=== PATIENT | female | born 1985 | race Caucasian/White ===

== ENCOUNTER 2019-08-26 06:30 | Inpatient (IN) | payer BC, OTHER, SELFPAY ==
[2019-08-26] VITALS (88 sets, daily range): BP systolic 82–142; BP diastolic 33–121; PULSE 57–198; RESP 12; TEMP 36.2–37.1; O2SAT 95–100; BMI 35.8
[2019-08-26] MEDS: LACTATED RINGERS 1,000 ML 125 ML IV CONT (07:14)
[2019-08-26] MEDS: FAMOTIDINE 20 MG/2 ML VIAL IV PUSH (07:16)
[2019-08-26] MEDS: OXYTOCIN 30 UNITS/NS 500 ML 30 UNITS/500 ML BAG IV CONT (07:16)
[2019-08-26 07:18] LABS: Basophils Percent Auto 0.2 % (0.2-1.2); Eosinophils Percent Auto 0.3 % (0-4.4); Hematocrit 39.2 % (37.0-47.0); Hemoglobin 13.3 g/dL (12.0-15.0); Immature Granulocyte Absolute 0.07 K/mm3 (0.00-0.031); Immature Granulocyte Percent A 0.6 % (0-0.5); Lymphocytes Absolute Auto 2.72 K/mm3 (0.9-3.2); Lymphocytes Percent Auto 22.3 % (18.3-44.2); Mean Corpuscular HGB Conc 33.9 g/dl (32-36); Mean Corpuscular Hemoglobin 30.8 pg (26-34); Mean Corpuscular Volume 90.7 fl (80-100); Mean Platelet Volume 12.2 fl (7.4-10.4); Monocytes Absolute Auto 0.7 K/mm3 (0.1-0.6); Neutrophils Absolute Auto 8.6 K/mm3 (1.3-6.7); Neutrophils Percent Auto 70.6 % (45.5-73.1); Platelet Count Result 157 k/mm3 (150-375); Red Blood Count 4.32 M/mm3 (4.2-5.4); Red Cell Distribution Width 14.3 % (11.5-14.5); White Blood Count 12.2 K/mm3 (4.5-10.0)
--- NOTE | 2019-08-26 07:29 | LDADM ---
This patient, Jennifer Palumbo, was admitted to Labor/Delivery/Recovery 108 on 08/26/19 at 06:30. Plans for labor, pain management and were discussed with patient. Patient/family oriented to hospital policies and general routines including ID bracelet, bed and alarms, visiting hours, pain management, procedures, bathroom and other care routines, personal items, smoking policy, room service/diet and guest tray routines, security routines, and visiting hours. Patient/Family are encouraged to report perceived risks to care and to ask questions if they do not understand what they are told or what they should do. See OBIX for further documentation.
--- NOTE | 2019-08-26 08:40 | WPDOBADMIT ---
Obstetrics - Admit Note Admission Note: record reviewed. Additions to the history and/or subsequent changes in the physical findings follow. 34 y/o at 39 5/7 weeks here desiring induction of labor. GBS neg. AVSS NST reactive TOCO: contractions irregularly ABD soft, nontender, gravid, vertex EXT nontender Cervix 4/50/-2. AROM with thinly meconium-stained fluid. A: IUP at term with favorable cervix. P: Oxytocin. Anticipate . Peds aware of meconium.
--- NOTE | 2019-08-26 09:57 | WPDANESEPPF ---
Anes - Initial Pre Proc Eval Date/Time: 08/26/19 09:57 Surgeon: Enrique Machuca MD Pre Op Diagnosis: IND Patient Data Age: 34 Gender: F Height: 1.65 m Weight: 97.72 kg Last Vital Signs Temp 36.3 C L 08/26/19 07:20 Pulse 62 08/26/19 09:45 BP 118/72 08/26/19 09:45 Allergies Allergy/AdvReac Type Severity Reaction Status Date / Time No Known Allergies Allergy Verified 08/06/19 14:16 Home Medications Medication Instructions Recorded Confirmed Type PNV cmb#95-ferrous fumarate-FA 1 tablet PO DAILY 08/06/19 08/06/19 History [] cetirizine [Zyrtec] 10 mg PO DAILY 08/06/19 08/06/19 History famotidine [Pepcid] 20 mg PO BID 08/06/19 08/06/19 History Laboratory Tests 08/26/19 08/26/19 08/26/19 06:44 06:44 06:44 WBC 12.2 K/mm3 H K/mm3 (4.5-10.0) RBC 4.32 M/mm3 M/mm3 (4.2-5.4) Hgb 13.3 g/dL g/dL (12.0-15.0) Hct 39.2 % % (37.0-47.0) MCV 90.7 fl fl (80-100) MCH 30.8 pg pg (26-34) MCHC 33.9 g/dl g/dl (32-36) RDW 14.3 % % (11.5-14.5) Plt Count 157 k/mm3 k/mm3 (150-375) MPV 12.2 fl H fl (7.4-10.4) Immature Gran % (Auto) 0.6 % H % (0-0.5) Neut % (Auto) 70.6 % % (45.5-73.1) Lymph % (Auto) 22.3 % % (18.3-44.2) [place] % (Auto) 6.0 % % (2.6-8.5) Eos % (Auto) 0.3 % % (0-4.4) Baso % (Auto) 0.2 % % (0.2-1.2) Lymph # (Auto) 2.72 K/mm3 K/mm3 (0.9-3.2) [place] # (Auto) 0.7 K/mm3 H K/mm3 (0.1-0.6) Eos # (Auto) 0.0 K/mm3 K/mm3 (0-0.3) Baso # (Auto) 0.0 K/mm3 K/mm3 (0.0-0.1) Abs Immat Gran (auto) 0.07 K/mm3 H K/mm3 (0.00-0.031) Absolute Neuts (auto) 8.6 K/mm3 H K/mm3 (1.3-6.7) Absolute Nucleated RBC 0.0 K/mm3 K/mm3 (0.0-0.012) Nucleated RBC % 0.0 % % (0.0-0.2) RPR Pending Blood Type O Positive Antibody Screen Negative Patient hx anesthesia problems: none Family hx anesthesia problems: none [facility] Family History Family History (Updated 08/06/19 @ 14:19 by Mala Davison RN) Sibling Deafness in right ear Mother Diabetes mellitus High cholesterol Hypertension Grandparent Breast cancer Social History Social History Smoking status: Never smoker Substance use: never Spiritual care concerns: No Anes - Eval Final PreProcedure Day of Procedure 08/26/19 09:57 Patient weight: overweight Heart: regular rate and rhythm Lungs: clear to auscultation and normal air movement Airway: Mallampati scale class II Neurological: alert and oriented Last oral intake: >/= 8 hours ASA classification: II Emergent: no Anesthetic plan: proceed Anesthesia type and monitoring: regional epidural Informed Consent: The patient's anesthetic plan and its attendant risks and benefits were discussed with the patient/family/POA. Questions were solicited and answers provided to the satisfaction of the patient/family/POA.
[2019-08-26 10:37] LABS: Rapid Plasma Reagin Non-Reactive (NonReactive)
--- NOTE | 2019-08-26 13:01 | PM.OBPNLAB ---
Pain Control Date/time seen: 08/26/19 13:01 Comments: Comfortable with epidural, but feeling more pressure. Pelvic Exam Dilation (cm): 9 Effacement (%): 100 station: 0 Contractions Contraction frequency: 3 Contraction pattern: Regular Status status: Category l Assessment and Plan Comments: Continue labor.
--- NOTE | 2019-08-26 13:48 | PM.OBPRVD ---
OB - Delivery Note Procedure Delivery date: 08/26/19 Procedure: Induction of labor with Induction method: AROM and per pitocin protocol Delivery monitor: external FHT and external uterine Route of delivery: Laceration description: Perineal - 1st Degree Delivery repair: vicryl (3-0) Specimen: Yes (cord blood) Estimated blood loss (mL): 120 Anesthesia type: Epidural Disposition: PACU Complications: None Narrative: 34 y/o at 39 5/7 weeks gestation who presented to the hospital for induction of labor. Oxytocin was administered intravenously. Amniotomy was performed with return of thinly meconium-stained fluid. She received an epidural for pain control. Her labor progressed and her cervix dilated completely. She pushed with good effort and delivered the infant's head to the perineum, followed by the body. The nose and mouth were bulb suctioned. After a delay, the cord was clamped and cut. The infant was handed off the field. Cord blood was collected. The placenta delivered spontaneously and was grossly normal in appearance. The usual 3 vessel cord was noted. A first degree midline perineal laceration was sustained. This was reapproximated using 3 0 Vicryl in interrupted fashion. Excellent hemostasis resulted as did excellent reapproximation of the normal anatomy. Needle and instrument counts were correct. The patient was taken to recovery room in stable condition. The infant went to the nursery in stable condition. I was present and scrubbed for the entire delivery. Baby Date of : 08/26/19 Time of : 13:33 Weeks of gestation at delivery: 39 Infant gender: Male Weight (pounds): 8 Weight (ounces): 7 presentation: vertex position: Right Occiput Anterior Placenta delivery description: Spontaneous and Normal Configuration cord vessel description: 3 Vessels score one minute: 9 score five minutes: 9
--- NOTE | 2019-08-26 13:50 | PM.OBDSVD ---
DS: Admitting Diagnosis Admitting Diagnosis Admitting Diagnosis: IUP at term with favorable cervix DS: Discharge Diagnosis Discharge Diagnosis (1) (normal spontaneous vaginal delivery): Code(s): O80 - Encounter for full-term uncomplicated delivery Status: Acute OB - DS: Summary OB Procedures : None OB Procedures Intrapartum: Spontaneous Vag Delivery OB Procedures: : None Time Spent with Patient Time attestation: Total time spent providing and/or coordinating discharge services: DS: Data Data Completed and Pending Labs on day of discharge: Labs from last 24 hours 08/26/19 08/26/19 08/26/19 06:44 06:44 06:44 WBC 12.2 H RBC 4.32 Hgb 13.3 Hct 39.2 MCV 90.7 MCH 30.8 MCHC 33.9 RDW 14.3 Plt Count 157 MPV 12.2 H Immature Gran % (Auto) 0.6 H Neut % (Auto) 70.6 Lymph % (Auto) 22.3 [place] % (Auto) 6.0 Eos % (Auto) 0.3 Baso % (Auto) 0.2 Lymph # (Auto) 2.72 [place] # (Auto) 0.7 H Eos # (Auto) 0.0 Baso # (Auto) 0.0 Abs Immat Gran (auto) 0.07 H Absolute Neuts (auto) 8.6 H Absolute Nucleated RBC 0.0 Nucleated RBC % 0.0 RPR Non-reactive Blood Type O Positive Antibody Screen Negative Discharge Plan Discharge Attending physician on discharge: Enrique Machuca Discharging Clinician: Enrique Machuca Patient Disposition: Home, Self-Care Activity: pelvic rest Diet: regular Discharge Instructions: Call or return if temperature above 100.4? F, increased abdominal pain, increased vaginal bleeding or any new problems. Stand Alone Forms: General Discharge Information Follow-up/Referrals: Enrique Machuca MD [Physician] - (6 weeks) Discharge Medications: New ibuprofen 600 mg tablet 600 mg PO Q6H PRN (Reason: cramps) Qty: 30 RF: 0 No Action cetirizine [Zyrtec] 10 mg Tablet 10 mg PO DAILY RF: 0 famotidine [Pepcid] 20 mg Tablet 20 mg PO BID RF: 0 PNV cmb#95-ferrous fumarate-FA [] 28 mg iron- 800 mcg Tablet 1 tablet PO DAILY RF: 0 Date of admission: 08/26/19 06:30 Primary Care Provider: Taj,Palua Admitting Provider: Enrique Machuca Attending physician on admission: Enrique Machuca
[2019-08-26] MEDS: OXYTOCIN 30 UNITS/NS 500 ML 30 UNITS/500 ML BAG 125 UNITS IV CONT (14:09)
[2019-08-26] MEDS: WITCH HAZEL 40 PADS 1 PAD TOPICAL (14:09)
[2019-08-26] MEDS: BENZOCAINE 20% AER SPR (*SP) 56 GM CAN 1 SPRAY TOPICAL (14:09)
--- NOTE | 2019-08-26 17:58 | OBPPTRN ---
Patient transferred to post room #290 via W/C @ [id number]. Support person present. Oriented to unit, room, information board, rooming in, admission packet and security measures. Patient verbalizes understanding.
[2019-08-26] MEDS: IBUPROFEN 600 MG TABLET PO (18:50)
[2019-08-27] MEDS: SIMETHICONE 80 MG TAB.CHEW PO (04:50)
[2019-08-27] MEDS: IBUPROFEN 600 MG TABLET PO (04:50)
[2019-08-27 05:37] LABS: Hematocrit 34.9 % (37.0-47.0); Hemoglobin 11.6 g/dL (12.0-15.0)
--- NOTE | 2019-08-27 08:20 | PM.OBPNVD ---
OB - PN: Subj Subjective Date/time seen: 08/27/19 08:20 Narrative: Pain OK. Desires circumcision for son. Also would like to go home. OB - PN: Obj Data Labs CBC & Chem 7: 08/27/19 04:54 Labs: Laboratory Results - last 24 hr 08/26/19 08/26/19 08/27/19 06:44 06:44 04:54 Hgb 11.6 L Hct 34.9 L RPR Non-reactive Blood Type O Positive Antibody Screen Negative OB - PN A/P Plan Comments: A: PPD#1, doing well. P: Routine care. Reviewed circ. Home to f/u 6 weeks. Exam Psych: Other: AVSS ABD soft, nontender, fundus firm EXT nontender
[2019-08-27] MEDS: ACETAMINOPHEN 325 MG TABLET 650 MG PO (09:11)
[2019-08-27] MEDS: MULTIVIT/MIN/PREN/FOL AC/IRON TABLET 1 TAB PO (09:11)
[2019-08-27] MEDS: DOCUSATE SODIUM 100 MG CAPSULE PO (09:11)
[2019-08-27] MEDS: BENZOCAINE 20% AER SPR (*SP) 56 GM CAN 1 SPRAY TOPICAL (09:12)
[2019-08-27] MEDS: WITCH HAZEL 40 PADS 1 PAD TOPICAL (09:12)
[2019-08-27 10:17] VITALS: BP 118/64; PULSE 72; RESP 14; TEMP 36.6; O2SAT 100
[2019-08-28 09:18] VITALS: BP 112/67; PULSE 73; RESP 20
== END 2019-08-27 16:10 | disposition home or self-care (01) | DRG 807 ==
LOC: ANHLDR 13:51 → ANHOB2 16:52
PROVIDERS: Admitting Provider Obstetrics & Gynecology; PCP Physician Assistant; Visit Provider Obstetrics & Gynecology
DX: O77.0 Labor and delivery complicated by meconium in amniotic fluid (principal); Z37.0 Single live birth; Z3A.39 39 weeks gestation of pregnancy; O70.0 First degree perineal laceration during delivery; O99.344 Other mental disorders complicating childbirth; F90.9 Attention-deficit hyperactivity disorder, unspecified type
CPT/HCPCS: 36415; 85014; 85018; 85025; 86592; 86850; 86900; 86901; A9270; J2590; J2795; J7120

== ENCOUNTER 2020-04-30 08:03 | Outpatient (CLI) | payer BC, OTHER, SELFPAY ==
--- NOTE | ~2020-04-30 | XR_ITS ---
XR UGIAC wo kub DATE: 04/30/2020 08:49 INDICATION: Gastroesophageal reflux TECHNIQUE: Air-contrast upper gastrointestinal series DAP: 45.075 2.8 minutes fluoroscopy time 109 image count COMPARISON: None FINDINGS: . There is normal deglutition and esophageal peristalsis. No stricture, mucosal fold thicke nitish, erosion, ulceration or intraluminal mass lesion of the esophagus, stomach or duodenum is detect ed. The proximal small bowel mucosal pattern is normal. No hiatal hernia. No gastroesophageal reflux was observed during the procedure. IMPRESSION: Normal examination Reviewed, dictated and finalized at [facility]. Reviewed, dictated and finalized at location A. 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
== END 2020-04-30 08:04 | disposition home or self-care (01) ==
LOC: ANHIMG 08:07
PROVIDERS: PCP Physician Assistant; Visit Provider Physician Assistant
DX: K21.9 Gastro-esophageal reflux disease without esophagitis (principal)
CPT/HCPCS: 74246

== ENCOUNTER → 2020-06-29 04:14 | Outpatient (CLI) | payer BC, OTHER, SELFPAY ==
[2020-06-29 19:04] LABS: SARS-CoV-2 RNA PCR Negative
== END ==
PROVIDERS: PCP Physician Assistant; Visit Provider Internal Medicine Gastroenterology
DX: Z01.812 Encounter for preprocedural laboratory examination (principal); Z20.822 Contact with and (suspected) exposure to COVID-19
CPT/HCPCS: C9803; U0003; U0005

== ENCOUNTER 2020-07-02 01:17 | Day surgery (SDC) | payer BC, OTHER, SELFPAY ==
[2020-06-17 11:53] VITALS: BMI 31.1
[2020-07-02 09:58] VITALS: BP 106/50; PULSE 76; RESP 18; TEMP 35.9; O2SAT 100
[2020-07-02] MEDS: LACTATED RINGERS 1,000 ML 150 ML IV CONT (10:08)
--- NOTE | 2020-07-02 10:08 | WPDANESEPPF ---
Anes - Initial Pre Proc Eval Procedure: Operation Date: 07/02/20 11:15 Proposed Procedures p Esophagogastroduodenoscopy - Mac Guillory MD Date/Time: 07/02/20 10:08 Surgeon: Mac Guillory MD Pre Op Diagnosis: GERD Patient Data Age: 34 Gender: F Height: 5 ft 5 in Weight: 84.4 kg Last Vital Signs Temp 35.9 C L 07/02/20 09:58 Pulse 76 07/02/20 09:58 Resp 18 07/02/20 09:58 BP 106/50 L 07/02/20 09:58 Pulse Ox 100 07/02/20 09:58 Allergies Allergy/AdvReac Type Severity Reaction Status Date / Time No Known Allergies Allergy Verified 07/02/20 09:56 Home Medications Medication Instructions Recorded Confirmed Type cetirizine [Zyrtec] 10 mg PO DAILY 08/06/19 06/17/20 History dextroamphetamine-amphetamine 10 10 mg PO BID 05/27/20 06/17/20 History mg tablet docusate calcium 50 mg capsule 50 mg PO DAILY 05/27/20 06/17/20 History escitalopram oxalate 10 mg tablet 10 mg PO DAILY 05/27/20 06/17/20 History pantoprazole 40 mg granules 40 mg PO DAILY 05/27/20 06/17/20 History delayed-release for susp in packet famotidine 20 mg PO HS 06/17/20 06/17/20 History Patient hx anesthesia problems: none Family hx anesthesia problems: none PMFSH Past Medical History Medical History ADHD Anxiety GERD (gastroesophageal reflux disease) Overweight Family History Family History Sibling Deafness in right ear Mother Diabetes mellitus High cholesterol Hypertension Grandparent Breast cancer Social History Social History Smoking status: Never smoker Alcohol intake: current Drinks per week: 2 Substance use: never Substance use type: does not use Living arrangements: with family Spiritual care concerns: No Anes - Eval Final PreProcedure Day of Procedure 07/02/20 10:08 Patient weight: obese Heart: regular rate and rhythm Lungs: clear to auscultation Airway: Mallampati scale class II Neurological: alert and oriented Last oral intake: >/= 8 hours ASA classification: III Emergent: no Anesthetic plan: proceed Anesthesia type and monitoring: general GIVS and standard monitoring Informed Consent: The patient's anesthetic plan and its attendant risks and benefits were discussed with the patient/family/POA. Questions were solicited and answers provided to the satisfaction of the patient/family/POA.
--- NOTE | 2020-07-02 10:45 | PM.HPGS ---
History of Present Illness History of Present Illness Consent: Risks, benefits, and alternatives have been discussed and questions answered. Patient agrees to proceed with procedure. Chief complaint: GERD Narrative: Jennifer Palumbo is a 34 year old female with gerd, better with protonix, pepcid and after discontinued to drink coffee Review of Systems Constitutional: Constitutional: Denies headache(s) and Denies weakness Eyes: Eyes: Denies blurry vision ENT: Reports Normal hearing present, Denies headache(s) and Denies neck pain Cardiovascular: Cardiovascular: Denies chest pain and Denies dyspnea Respiratory: Respiratory: Denies dyspnea Gastrointestinal: Gastrointestinal: Reports no additional gastrointestinal complaints Genitourinary: Genitourinary: Denies dysuria Musculoskeletal: Musculoskeletal: Denies neck pain Integumentary/Breasts: Skin/Breast: Denies dry skin Neurologic: Reports Normal hearing present, Denies headache(s) and Denies weakness Psychiatric: Psychiatric: Denies anxiety Endocrine: Endocrine: Denies change in body appearance Hematologic/Lymphatic: Hematologic/Lymphatic: Denies easy bleeding Allergic/Immunologic: Allergic/Immunologic: Denies urticaria PMFSH Past Medical History Medical History ADHD Anxiety GERD (gastroesophageal reflux disease) Overweight Family History Family History Sibling Deafness in right ear Mother Diabetes mellitus High cholesterol Hypertension Grandparent Breast cancer Social History Social History Smoking status: Never smoker Alcohol intake: current Drinks per week: 2 Substance use: never Substance use type: does not use Living arrangements: with family Spiritual care concerns: No Meds Home Medications and Allergies Home Medications Medication Instructions Recorded Confirmed Type cetirizine [Zyrtec] 10 mg PO DAILY 08/06/19 06/17/20 History dextroamphetamine-amphetamine 10 10 mg PO BID 05/27/20 06/17/20 History mg tablet docusate calcium 50 mg capsule 50 mg PO DAILY 05/27/20 06/17/20 History escitalopram oxalate 10 mg tablet 10 mg PO DAILY 05/27/20 06/17/20 History pantoprazole 40 mg granules 40 mg PO DAILY 05/27/20 06/17/20 History delayed-release for susp in packet famotidine 20 mg PO HS 06/17/20 06/17/20 History Allergies Allergy/AdvReac Type Severity Reaction Status Date / Time No Known Allergies Allergy Verified 07/02/20 09:56 Vital Signs Vital Signs - 24 hr 07/02/20 09:58 Temperature 96.7 F L Pulse Rate 76 Respiratory Rate 18 Blood Pressure 106/50 L Pulse Oximetry 100 Exam Const: General: comfortable and no acute distress HENMT: General nose exam: Normal nares present Eyes: General: appearance normal, both eyes and all related structures Neck: Neck: no JVD Resp: Auscultation: clear to auscultation bilaterally Cardio: Rate: regular rate Rhythm: regular rhythm GI: Inspection: non-distended GI Palp: Yes Soft to palpation Skin: General skin exam: normal color Neuro: General: gait normal Speech: normal speech Extrem: General: normal to inspection Psych: Mental Status: mental status grossly normal Assessment and Plan Assessment and plan (1) GERD (gastroesophageal reflux disease): Code(s): K21.9 - Gastro-esophageal reflux disease without esophagitis Status: Inactive Assessment and Plan: egd
[2020-07-02] MEDS: BENZOCAINE (*SP) 60 ML SPRAY CAN (HURRICAINE) 1 SPRAY MUCOUS MEM (10:46)
[2020-07-02 10:55] VITALS: BP 103/62; PULSE 61; RESP 18; O2SAT 98
[2020-07-02 11:05] VITALS: BP 118/74; PULSE 73; RESP 20; O2SAT 100
[2020-07-02 11:15] VITALS: BP 120/79; PULSE 68; RESP 24; O2SAT 100
== END 2020-07-02 11:39 | disposition home or self-care (01) ==
PROVIDERS: PCP Physician Assistant; Visit Provider Internal Medicine Gastroenterology
PROC: 0DJ08ZZ Inspection of Upper Intestinal Tract, Via Natural or Artificial Opening Endoscopic (ICD-10-PCS; CPT 43235; principal; 2020-07-02 11:15)
DX: K21.9 Gastro-esophageal reflux disease without esophagitis (principal); K29.50 Unspecified chronic gastritis without bleeding; F90.9 Attention-deficit hyperactivity disorder, unspecified type; E66.9 Obesity, unspecified; Z68.31 Body mass index [BMI] 31.0-31.9, adult
CPT/HCPCS: 43239; 88305; J2704; J7120

== ENCOUNTER → 2021-01-14 13:58 | Outpatient (CLI) | payer BC, OTHER, SELFPAY ==
--- NOTE | ~2021-01-14 | XR_ITS ---
EXAMINATION: XR sacrum coccyx min 2V INDICATION: Sacrococcygeal pain TECHNIQUE: Three views of the sacrum and coccyx are obtained. COMPARISON: CT, 01/27/2007 FINDINGS: No fracture is identified. There is grossly no change since the 2006 comparison. The soft t issues are unremarkable. IMPRESSION: 1. No acute osseous abnormality. Reviewed, dictated and finalized at location A.
== END ==
PROVIDERS: PCP Physician Assistant; Visit Provider Chiropractor
DX: S32.2XXA Fracture of coccyx, initial encounter for closed fracture (principal)
CPT/HCPCS: 72220

== ENCOUNTER → 2021-03-17 08:26 | Outpatient (CLI) | payer BC, OTHER, SELFPAY ==
--- NOTE | ~2021-03-17 | MMUS_ITS ---
EXAMINATION: MM diag nik implant BI w payton, US breast LT limited HISTORY: Sensation of abnormal rotation of the left breast implant as well as abnormal sensation in t he upper outer quadrant of the left breast and near the nipple TECHNIQUE: Craniocaudal, mediolateral, and mediolateral oblique 3-D tomosynthesis images with implant displacement of the breasts were performed and synthetic 2-D images were generated. Craniocaudal, m ediolateral oblique, and mediolateral views of the breasts without implant displacement were obtained using full field digital mammography. CAD analysis was submitted and interpreted. High resolution [facility] left breast ultrasound was performed. COMPARISON: None, baseline BREAST PARENCHYMAL COMPOSITION: The breasts are heterogeneously dense, which may obscure small masses . FINDINGS: MAMMOGRAPHIC FINDINGS: There is no evidence of suspicious mass, calcification, or architectural distortion in either breast to suggest malignancy. No mammographic correlate is identified for the reported abnormal sensation o f the left breast. ULTRASOUND: There is no evidence of focal abnormal solid or cystic lesion in the vicinity of the reported abnorma l sensation of the left breast. There is fluid surrounding the left breast implant of unclear etiolog y. IMPRESSION: 1. No specific mammographic or sonographic correlate is identified for the reported abnormal sensatio n of the left breast. Further evaluation at this time should be based on clinical assessment. Continu ed follow-up physical examination is recommended. 2. Fluid surrounding the left breast implant of unclear etiology. BI-RADS Category 1: Negative Reviewed, dictated and finalized at location A. DEVELOPER IMPRESSION: 1. No specific mammographic or sonographic correlate is identified for the repo rted abnormal sensation of the left breast. Further evaluation at this time krystal uld be based on clinical assessment. Continued follow-up physical examination i s recommended. 2. Fluid surrounding the left breast implant of unclear etiology. BI-RADS Category 1: Negative
== END ==
PROVIDERS: PCP Physician Assistant; Visit Provider Physician Assistant
DX: T85.49XA Other mechanical complication of breast prosthesis and implant, initial encounter (principal)
CPT/HCPCS: 76642; 77062; 77066; G0279

== ENCOUNTER 2021-06-10 06:03 | Day surgery (SDC) | payer OTHER, SELFPAY ==
[2021-05-27 10:58] VITALS: BMI 29.0
--- NOTE | 2021-05-27 11:56 | SUR.PREOP ---
PRE-OPERATIVE INSTRUCTIONS [address] [address] 1. Report to the Surgery Center Waiting Room, the entrance is the first door on the right after passing through the automatic sliding doors, at time __0600____on date__06/10/2021__. OR Time:__07:30___ . When you arrive, you and your visitor will be screened for Covid prior to entry. A mask is required within the surgery center. 2. Preoperative Covid Testing Requirements: No Covid Test Needed if: (proof is required) ? Patient has received Covid Vaccine at least 14 days prior to procedure date or ? Patient has positive Covid test result within last 90 days of surgery date. Covid Test needed if above criteria is not met: Covid testing must be conducted within 72 hours of surgery and patient is asked to isolate self from time of testing until procedure. You will be scheduled for your Preoperative testing. Your time for testing is on (date) at time . You will go to the (Testing Site) for your preoperative testing. The Testing Site is located at [address] [place] [address]. The [facility] on Corner [address] You will only be called if test is a positive result. 3. Patients may have clear liquids (water, carbonated beverages, clear teas, apple juice) until 3 hours prior to surgery with a maximum of 20 ounces. ? No food from midnight until time of surgery. ? Infants may have breast milk until 4 hours before surgery, formula 6 hours prior to surgery. ? Children will be allowed to drink immediately following surgery. If applicable, please bring a bottle or sippy cup to assist with drinking. Juice, water, soda, and popsicles are readily available. For infants on formula, please bring formula the day of surgery. Pacifiers are allowed. 4. Take the following medications with a SIP of water the morning of surgery: 1. n/a 2. 3. Medications to discontinue per physician order: 1. n/a date to discontinue: 5. No make-up, nail chinese, hairspray, perfume, deodorant, or body powder the day of surgery. No jewelry (including any body piercings) or valuables the day of surgery. Please take a shower or bath the night before, or the morning of, surgery with an antibacterial soap. Wear comfortable, loose fitting clothing. Children are encouraged to wear pajamas. ? Jewelry must be removed prior to entering the operating room. Rings and piercings that are not removed will be cut off. The center will not accept responsibility for valuables. Please leave all valuables, including medications, at home the day of surgery. 6. When going home after surgery, a licensed local company truck driver must drive you home. NO public transportation without another adult. We recommend someone to stay with you, no alcoholic beverages, driving or important decision making for 24 hours after surgery. For pediatric surgeries, we recommend two adults to accompany a child home. (Only one will be allowed into the building with the patient) 7. 1 visitor (over age of 18) will be allowed. The visitor will drop patient off and remain in car until patient is prepared for surgery. Visitor will be called to join patient. Exceptions: Adult of a pediatric patient, patients with intellectual and/or developmental disability or cognitive impairments can accompany patient through-out visit. Visitors will need to be screened prior to coming into the center. Screening will include Covid symptom question checking. Visitor must wear a mask. Visitor will remain in patient?s room for duration of stay. 8. Follow any additional instructions given by your physician. Telephone instruction given to:_patientMo Rodriguez
--- NOTE | 2021-06-09 11:15 | WPDANESEPPF ---
Anes - Initial Pre Proc Eval Procedure: Operation Date: 06/10/21 07:30 Proposed Procedures p Bilateral Breast Implant Exchange - Amadeo Perez MD s Bilateral Breast Mastopexy - Amadeo Perez MD Date/Time: 06/09/21 11:15 Surgeon: Amadeo Perez MD Pre Op Diagnosis: History of Breast Augmentation, Breast Ptosis Patient Data Age: 35 Gender: F Height: 1.65 m Weight: 79 kg Allergies Allergy/AdvReac Type Severity Reaction Status Date / Time No Known Allergies Allergy Verified 06/10/21 06:49 Home Medications Medication Instructions Recorded Confirmed Type cetirizine [Zyrtec] 10 mg PO DAILY 08/06/19 05/27/21 History dextroamphetamine-amphetamine 10 10 mg PO BID 05/27/20 05/27/21 History mg tablet docusate calcium 50 mg capsule 50 mg PO DAILY 05/27/20 05/27/21 History famotidine 20 mg PO HS 06/17/20 05/27/21 History carisoprodol 350 mg tablet 350 mg PO TID PRN #21 tablet 05/27/21 05/27/21 Rx cholecalciferol (vitamin D3) 10 mcg PO DAILY 05/27/21 05/27/21 History fluoxetine [Prozac] 10 mg PO DAILY 05/27/21 05/27/21 History magnesium 30 mg PO DAILY 05/27/21 05/27/21 History oxycodone-acetaminophen 5 mg-325 1 tablet PO Q6H PRN #30 tablet 05/27/21 05/27/21 Rx mg tablet pantoprazole [Protonix] 40 mg PO BID 05/27/21 05/27/21 History Patient hx anesthesia problems: none Family hx anesthesia problems: none Results Review: All pre-operative results and documents have been reviewed as part of the pre-operative evaluation. [facility] Past Medical History Medical History ADHD Anxiety GERD (gastroesophageal reflux disease) Overweight Surgical History Surgical History Hx of breast augmentation Family History Family History Sibling Deafness in right ear Mother Diabetes mellitus High cholesterol Hypertension Grandparent Breast cancer Social History Social History Smoking status: Never smoker Alcohol intake: current Drinks per week: 2 Substance use: never Substance use type: does not use Living arrangements: with family Spiritual care concerns: No Anes - Eval Final PreProcedure Day of Procedure 06/09/21 11:15 Patient weight: overweight Heart: regular rate and rhythm Lungs: clear to auscultation and normal air movement Airway: Mallampati scale class II Neurological: alert and oriented Last oral intake: >/= 8 hours ASA classification: II Emergent: no Anesthetic plan: proceed Anesthesia type and monitoring: general LMA and standard monitoring Results Review: All pre-operative results and documents have been reviewed as part of the pre-operative evaluation. Informed Consent: The patient's anesthetic plan and its attendant risks and benefits were discussed with the patient/family/POA. Questions were solicited and answers provided to the satisfaction of the patient/family/POA.
[2021-06-10] VITALS (7 sets, daily range): BP systolic 104–117; BP diastolic 49–70; PULSE 61–74; RESP 14–17; TEMP 36.5–36.6; O2SAT 97–100; BMI 29.2
[2021-06-10] MEDS: SCOPOLAMINE 1.5 MG PATCH TRANSDERM (07:16)
[2021-06-10] MEDS: LACTATED RINGERS 1,000 ML 30 ML IV CONT ×2 (07:18→10:17)
--- NOTE | 2021-06-10 07:18 | WPDHPUPDATE1 ---
History and Physical Update Update Date/Time: 06/10/21 07:18 History and Physical has been reviewed, including an updated exam of the patient. There are NO changes in the patient's condition. Risks, benefits, and alternatives have been discussed and questions answered. Patient agrees to proceed with procedure.
--- NOTE | 2021-06-10 07:26 | W.PM.PROC2 ---
Procedure Note - Detailed Date of Procedure 06/10/21 Pre-op Diagnosis History of Breast Augmentation, Breast Ptosis Post-op Diagnosis Same Procedure Performed 1. Bilateral implant exchange (change to submuscular /dual plane) 2. Bilateral mastopexy 3. Bilateral capsulectomy Surgeon Amadeo Perez MD Anesthesia General Findings Implants removed - textured, no worrisome intraoperative findings. Bilateral Inverted T, Superior pedicle mastopexy Bilateral Natrelle Inspira SoftTouch 400cc smooth silicone implants. Right - REF# [id number] SN [id number] Left - REF# [id number] SN [id number] Description of Procedure She is here today for bilateral breast implant exchange mastopexy. Previously and again today the risks, benefits, alternatives were discussed in extensive detail. I wanted her to be very realistic about the risks involved as well as expectations. We discussed aftercare and what to monitor for. Made sure answered all of her questions to her satisfaction today and consent was obtained. Marked in the preoperative holding area with their verification. The patient was taken to the operating room placed supine on the operating table. Anesthesia was provided by anesthesiology. A surgical time-out was taken. We cleansed the skin and 1% lidocaine and 0.25% Marcaine with epinephrine was used anesthetize as a field block. She was prepped and draped in a standard sterile fashion. Tegaderm nipple Eduardo were placed. A 15 blade used to make an incision at the previous incision site. Dissection was continued down until the capsule was identified and removed the majority of the capsule. Capsule and implant removed. I saw no worrisome features. Bilateral implants were textured appear to be intact. She has elected to proceed with changing plane to submuscular in a dual plane fashion. I incised the pectoralis major along its inferior border and completely released the inferior border leaving the medial border intact. I created a subpectoral pocket in the appropriate dimensions based on our preoperative planning for the implant. I irrigated with 3 L of saline solution total on TUR tubing. I reapproximated the breast to the pectoralis using 2-0 Vicryl to prevent migration of the implant into the prepectoral position. I then copiously irrigated with saline solution and verified a strict hemostasis. Next the use a triple antibiotic and Betadine containing solution to irrigate the pocket. I washed my gloves with the triple antibiotic and Betadine solution. We washed the implant immediately upon opening it with this solution and only opened it when we needed it. I used implant funnel and no-touch technique. The implant was introduced into the pocket using the funnel. Having verified positioning of the implant this was closed using 2-0 Vicryl. I tailor tacked the breast into position. Placed her in a sitting position. Verified the nipple-areolar location based on preoperative planning as well as intraoperative observations and measurements in full agreement. She was placed supine. I de-epithelialized the pedicle. I then removed the inferior central portion of the breast need making sure the implant was well protected. I elevated medial and lateral tissue flaps as well for planned closure. I closed along the IMF with 2-0 Stratafix. Along the vertical with 2-0 PDS. I closed around the Nicholas with 3-0 strata fix. 3-0 Monocryl along the vertical. 3-0 Stratafix along the IMF. I finally closed everything with running subcuticular 4-0 Monocryl and tissue glue. Fluffs and surgical bra were placed. Estimated Blood Loss 50 Drains No Packing No Pathology Yes (Bilateral breast implant capsules.) Complications No immediate complications Condition Stable Disposition PACU
[2021-06-10] MEDS: ceFAZolin SODIUM 2 GM/20 ML SW SYRINGE IV PUSH (07:27)
[2021-06-10] MEDS: LIDO 1%/EPINEPHRINE 1:100,000 20 ML VIAL 40 ML INFILTRATE (07:57)
[2021-06-10] MEDS: fentaNYL CITRATE INJ (*CRX) 100 MCG/2 ML VIAL 25 MCG IV PUSH ×3 (10:22→10:41)
[2021-06-10] MEDS: oxyCODONE HCL (*CRX) 5 MG TAB IR PO (11:15)
--- NOTE | 2021-06-10 11:48 | WPDANESPN ---
Anes - Prog Note Post-Op Date/Time: 06/10/21 11:48 Cardiovascular status: normal Respiratory status: normal Airway patency: baseline Mental status: baseline Post-Op hydration status: normal Vital Signs: Last Vital Signs Temp 36.5 C 06/10/21 10:09 Pulse 66 06/10/21 11:35 Resp 15 06/10/21 11:35 BP 104/70 06/10/21 11:35 Pulse Ox 97 06/10/21 11:35 Pain Score (VAS): 3 I/O: Intake & Output 06/09/21 06/10/21 06/10/21 23:59 07:59 15:59 Intake Total 1000 Balance 1000 Post-procedural complaints: none Patient Feedback: Patient satisfied with anesthetic care. Other Findings: Patient vital signs back to baseline. Patient denies nausea and vomiting. Patient's pain under control. Patient OK for discharge.
== END 2021-06-10 11:45 | disposition home or self-care (01) ==
PROVIDERS: PCP Physician Assistant; Visit Provider Surgery Plastic and Reconstructive Surgery
PROC: (CPT 19342; principal; 2021-06-10 07:30)
PROC: (CPT 19316; 2021-06-10 07:30)
DX: Z98.82 Breast implant status (principal)
CPT/HCPCS: 19342; 19316

== ENCOUNTER 2021-06-10 09:48 | Outpatient (NON) | payer BC, OTHER, SELFPAY | END 2021-06-13 09:14 | disposition home or self-care (01) | PROVIDERS: PCP Physician Assistant; Visit Provider Surgery Plastic and Reconstructive Surgery | DX: Z98.82 Breast implant status (principal) | CPT/HCPCS: 88304 ==

== ENCOUNTER 2022-02-15 00:34 | Day surgery (SDC) | payer BC, OTHER, SELFPAY ==
[2022-02-06 15:37] VITALS: BMI 27.1
--- NOTE | 2022-02-06 15:41 | PC.NURSE ---
Report to the Outpatient Waiting Room, entrance under the green pavilion located off [facility], at time 1000 on date 02/15/22. Planned Procedure Time: 1200. Time changes happen often and if your time is changed the preop area will call you the afternoon before. - You and your visitor will be asked to self-screen and do not enter if you have any COVID symptoms. - We encourage only one visitor and NO visitors under age 16 are allowed at this time. Your visitor will receive communication by the phone number that is given day of service. - The patient visitor is requested to social distance or may leave the building when not with patient due to restrictions. - A mask is OPTIONAL within the hospital. Patients may have clear liquids (water, carbonated beverages, clear teas, apple juice) until 3 hours prior to surgery with a maximum of 20 ounces. - No food from midnight until time of surgery Take the following medications with a SIP of water the morning of surgery: FLUOXETINE Medications to discontinue per physician: VITAMINS/SUPPLEMENTS Date to take last dose: 02/11/22 Please no make-up, nail mohawk, hairspray, perfume, deodorant, or body powder the day of surgery. No jewelry (including any body piercings) or valuables the day of surgery, leave them at home. Please take a shower or bath the night before, or the morning of, surgery with an antibacterial soap. Wear comfortable, loose fitting clothing. - Jewelry must be removed prior to entering the operating room. Rings and piercings that are not removed may be cut off. - The hospital will not accept responsibility for valuables. - Please leave all valuables, including medications, at home the day of surgery. If you are going home after surgery, a licensed marine engine driver must drive you home. - NO public transportation without another adult. - We recommend that an adult stay with you for 24 hours following discharge. - We also recommend that you do not drive, make important decision, drink alcoholic beverages, or take any drugs that were not prescribed by your health care provider for at least 24 hours after your discharge time. Follow any additional instructions given to you from your surgeon. If you or anyone in your household have experienced Covid symptoms in the past week, please notify your surgeon or the nurse liaison at the phone number below for possible testing. Telephone instructions given to PT - EDGARDO RANGEL and asked if any additional questions and then verbalized understanding. Patient advised to call surgeon office or pre surgery nurse liaison [phone] if any additional questions.
--- NOTE | 2022-02-14 14:41 | WPDANESEPPF ---
Anes - Initial Pre Proc Eval Procedure: Operation Date: 02/15/22 07:30 Proposed Procedures p Hysteroscopy Dilation and Curettage with Veronica Endometrial Ablation - Enrique Machuca MD Date/Time: 02/14/22 14:41 Surgeon: Enrique Machuca MD Pre Op Diagnosis: irregular bleeding Patient Data Age: 36 Gender: F Height: 1.65 m Weight: 73.95 kg Allergies Allergy/AdvReac Type Severity Reaction Status Date / Time No Known Allergies Allergy Verified 02/15/22 06:16 Home Medications Medication Instructions Recorded Confirmed Type famotidine 20 mg tablet 20 mg PO HS 06/17/20 02/15/22 History cholecalciferol (vitamin D3) 10 10 mcg PO DAILY 05/27/21 02/15/22 History mcg (400 unit) tablet fluoxetine 10 mg capsule (Prozac) 10 mg PO DAILY 05/27/21 02/15/22 History docusate sodium 100 mg tablet 100 mg PO DAILY 02/06/22 02/15/22 History lisdexamfetamine 60 mg capsule 60 mg PO DAILY 02/06/22 02/15/22 History (Vyvanse) loratadine 10 mg tablet 10 mg PO DAILY 02/06/22 02/15/22 History magnesium 250 mg tablet 250 mg PO DAILY 02/06/22 02/15/22 History omega 5-rae-ehl-fish oil 1,000 mg 1 cap PO DAILY 02/06/22 02/15/22 History (120 mg-180 mg) capsule (Fish Oil) tirzepatide 5 mg/0.5 mL 5 mg subcut WEEKLY WEIGHT LOSS 02/06/22 02/15/22 History subcutaneous pen injector (Mounjaro) Patient hx anesthesia problems: none Family hx anesthesia problems: none Results Review: All pre-operative results and documents have been reviewed as part of the pre-operative evaluation. [facility] Past Medical History Medical History ADHD Anxiety GERD (gastroesophageal reflux disease) Overweight Surgical History Surgical History Hx of breast augmentation Family History Family History Sibling Deafness in right ear Mother Diabetes mellitus High cholesterol Hypertension Grandparent Breast cancer Social History Social History Smoking status: Never smoker Alcohol intake: current Drinks per week: 2 Substance use: never Substance use type: does not use Living arrangements: with family Spiritual care concerns: No Anes - Eval Final PreProcedure Day of Procedure 02/14/22 14:41 Patient weight: overweight Heart: regular rate and rhythm Lungs: clear to auscultation and normal air movement Airway: Mallampati scale class II Neurological: alert and oriented Last oral intake: >/= 8 hours ASA classification: II Emergent: no Anesthetic plan: proceed Anesthesia type and monitoring: general GIVS and LMA and standard monitoring Results Review: All pre-operative results and documents have been reviewed as part of the pre-operative evaluation. Informed Consent: The patient's anesthetic plan and its attendant risks and benefits were discussed with the patient/family/POA. Questions were solicited and answers provided to the satisfaction of the patient/family/POA.
--- NOTE | 2022-02-15 01:16 | PM.IMHP ---
H&P: HPI History of Present Illness Date/Time: 02/15/22 01:16 Chief Complaint: Heavy periods. Narrative: 36 y/o who has heavy menses lasting 4 days each on a combined contraceptive. But her has had a vasectomy and she plans to stop taking her pill. She desires surgical management of her problem. Review of Systems Review of Systems: All systems reviewed & are unremarkable except as noted in HPI and below PMFSH Past Medical History Medical History ADHD Anxiety GERD (gastroesophageal reflux disease) Overweight Surgical History Surgical History Hx of breast augmentation Family History Family History Sibling Deafness in right ear Mother Diabetes mellitus High cholesterol Hypertension Grandparent Breast cancer Social History Social History Smoking status: Never smoker Alcohol intake: current Drinks per week: 2 Substance use: never Substance use type: does not use Living arrangements: with family Spiritual care concerns: No Meds Home Medications and Allergies Home Medications Medication Instructions Recorded Confirmed Type famotidine 20 mg tablet 20 mg PO HS 06/17/20 02/06/22 History cholecalciferol (vitamin D3) 10 10 mcg PO DAILY 05/27/21 02/06/22 History mcg (400 unit) tablet fluoxetine 10 mg capsule (Prozac) 10 mg PO DAILY 05/27/21 02/06/22 History docusate sodium 100 mg tablet 100 mg PO DAILY 02/06/22 02/06/22 History lisdexamfetamine 60 mg capsule 60 mg PO DAILY 02/06/22 02/06/22 History (Vyvanse) loratadine 10 mg tablet 10 mg PO DAILY 02/06/22 02/06/22 History magnesium 250 mg tablet 250 mg PO DAILY 02/06/22 02/06/22 History omega 1-fkv-nut-fish oil 1,000 mg 1 cap PO DAILY 02/06/22 02/06/22 History (120 mg-180 mg) capsule (Fish Oil) tirzepatide 5 mg/0.5 mL 5 mg subcut WEEKLY WEIGHT LOSS 02/06/22 02/06/22 History subcutaneous pen injector (Mounjaro) Allergies Allergy/AdvReac Type Severity Reaction Status Date / Time No Known Allergies Allergy Verified 02/06/22 15:34 Exam Const: Orientation/consciousness: patient oriented x3 Other: Well-developed, well-nourished female in no acute distress. Neck: Thyroid: thyroid normal Lymphatic: no lymphadenopathy noted (in neck, axilla or inguinal nodes) Resp: Effort & Inspection: normal respiratory effort Auscultation: clear to auscultation bilaterally Cardio: Rate: regular rate Rhythm: regular rhythm Heart sounds: S1 normal heart sound present and S2 normal heart sound present GI: Other: ABD: Soft, nontender, nondistended. No guarding or rebound tenderness. No hepatosplenomegaly. : General: Yes no CVA tenderness Other: External genitalia: normal female hair distribution, without lesion. Urethral meatus: no lesion, non prolapsed. Bladder: no mass, nontender Vagina: well-estrogenized, without lesion or discharge. No cystocele or rectocele. Cervix: no lesion or discharge. Uterus: small, anteverted, freely mobile, nontender Adnexa: no mass or tenderness. Anus/perineum: no lesions, nontender Back/Spine/Pelvis: Back: no CVA tenderness Skin: General skin exam: normal color and no rashes or lesions noted Neuro: General: patient oriented x3 Extrem: Other: Extremities: nontender with no edema Psych: Mental Status: mental status grossly normal Affect: normal affect Assessment and Plan Assessment and plan (1) Menorrhagia: Code(s): N92.0 - Excessive and frequent menstruation with regular cycle Status: Acute Assessment and Plan: A: Menorrhagia. P: We have reviewed medical as well as surgical management options. She desires the latter. Specifically, I have offered her a hysteroscopy with dilation and sharp curettage with endometrial ab
[2022-02-15 06:14] VITALS: BP 109/59; PULSE 71; RESP 16; TEMP 36.2; O2SAT 100
[2022-02-15] MEDS: ACETAMINOPHEN 500 MG TABLET 1000 MG PO (06:54)
[2022-02-15] MEDS: LACTATED RINGERS 1,000 ML 30 ML IV CONT (07:00)
--- NOTE | 2022-02-15 07:36 | WPDHPUPDATE1 ---
History and Physical Update Update Date/Time: 02/15/22 07:36 History and Physical has been reviewed, including an updated exam of the patient. There are NO changes in the patient's condition. Risks, benefits, and alternatives have been discussed and questions answered. Patient agrees to proceed with procedure.
[2022-02-15] MEDS: LIDOCAINE HCL 1% LOCAL INJ 20 ML VIAL 30 ML INFILTRATE (07:52)
[2022-02-15 08:06] VITALS: BP 102/62; PULSE 62; RESP 14; O2SAT 98
--- NOTE | 2022-02-15 08:06 | W.PM.PROC2 ---
Procedure Note - Detailed Date of Procedure 02/15/22 Pre-op Diagnosis Menorrhagia Post-op Diagnosis Same Procedure Performed Hysteroscopy Dilation and sharp curettage Endometrial ablation Surgeon Enrique Machuca MD Anesthesia MAC and Local (paracervical block) Findings Unremarkable endometrial cavity. Both tubal ostia seen. Uterus sounded to a depth of 8 cm with a cervical length of 3.5 cm. Description of Procedure The patient was taken to the operating room where she was prepared and draped in the usual sterile fashion in the dorsal lithotomy position. The bladder was drained with a red rubber catheter. A sterile speculum was placed into the vagina. The anterior lip of the cervix was grasped with single-tooth tenaculum. Ten mL of 1% lidocaine was administered in a paracervical block. The cervix was then gently dilated using Hegar dilators until an 8 mm dilator could be passed. Hysteroscopy was performed using sterile saline as a distention medium. Findings are as noted above. Sharp curettage was then performed, and endometrial curettings were collected on a Telfa pad and passed off to be sent to pathology. Finally, the the Veronica device was advanced and endometrial ablation commenced without difficulty. The device was withdrawn and a second look was taken using the hysteroscope. Excellent coverage of the endometrial cavity was noted. The tenaculum was removed. Hemostasis was excellent. Sponge, lap, needle and instrument counts were correct. The patient was awakened and taken to the recovery room in stable condition. I was present and scrubbed through the entire procedure. Implants None Estimated Blood Loss 5 Drains No Packing No Pathology Yes (Endometrial curettings) Complications None Condition Stable Disposition PACU
[2022-02-15 08:35] VITALS: BP 113/59; PULSE 64
[2022-02-15] MEDS: oxyCODONE HCL (*CRX) 5 MG TAB IR PO (08:39)
[2022-02-15 08:50] VITALS: BP 109/63; PULSE 55
--- NOTE | 2022-02-15 08:53 | SUR.PHASEII ---
Vital signs stable. Patient is getting dressed now and waiting for ride.
== END 2022-02-15 09:02 | disposition home or self-care (01) ==
PROVIDERS: PCP Physician Assistant; Visit Provider Obstetrics & Gynecology
PROC: 0U5B8ZZ Destruction of Endometrium, Via Natural or Artificial Opening Endoscopic (ICD-10-PCS; CPT 58563; principal; 2022-02-15 07:30)
DX: N92.0 Excessive and frequent menstruation with regular cycle (principal); F90.9 Attention-deficit hyperactivity disorder, unspecified type; K21.9 Gastro-esophageal reflux disease without esophagitis; F41.9 Anxiety disorder, unspecified
CPT/HCPCS: 58563; 88305; A9270; J1100; J1885; J2250; J2405; J2704; J3010; J7030; J7120